=== PATIENT | male | born 1975 | race Caucasian/White ===

== ENCOUNTER 2018-08-09 17:03 | Emergency (ER) | payer SELFPAY, OTHER ==
[2018-08-09] MEDS: LIDOCAINE 1% (MPF) 5 ML VIAL INFIL (19:28)
[2018-08-09] MEDS: DIPHTH/TET/ACEL PERTUSS (ADULT) 0.5 ML VIAL IM* (19:35)
== END 2018-08-09 20:16 | disposition home or self-care (01) ==
LOC: FTE 17:03
DX: S51.812A Laceration without foreign body of left forearm, initial encounter (principal); W25.XXXA Contact with sharp glass, initial encounter; Y92.9 Unspecified place or not applicable; Z23 Encounter for immunization
CPT/HCPCS: 12002; 73090; 90471; 90715; 99283-25